=== PATIENT | female | born 1995 | race Caucasian/White ===

== ENCOUNTER 2017-07-14 18:04 | Emergency (ER) | payer OTHER ==
[2017-07-14 19:53] LABS: ABS Basophils 0 10^3/ul (0-0.2); ABS Eosinophils 0.2 10^3/ul (0-0.6); ABS Lymphocytes 1.6 10^3/ul (1.0-4.8); ABS Monocytes 0.4 10^3/ul (0-0.8); ABS Neutrophils 6.6 10^3/ul (1.5-7.7); ABS Nucleated RBC 0 10^3/ul; Eosinophil % 1.8 % (0-6); Hematocrit 46 % (35-47); Hemoglobin 15.8 g/dl (12.0-16.0); Lymphocyte % 18.1 % (25-47); Mean Corpuscular HGB Conc 35 g/dl (31-36); Mean Corpuscular Hemoglobin 30 pg (27-31); Mean Corpuscular Volume 87 fL (80-97); Mean Platelet Volume 8 um3 (7.4-10.4); Nucleated Red Blood Cells % 0; Platelet Count 218 10^3/ul (150-450); Red Blood Count 5.29 10^6/ul (4.0-5.4); Red Cell Distribution Width 13 % (10.5-15); White Blood Count 8.7 10^3/ul (3.5-10.8)
--- NOTE | 2017-07-14 20:01 | ED ---
Syncope/Near Syncope - HPI Summary HPI Summary: 22-year-old female presents with syncope today. States she was having a bowel movement and and stood up and passed out. She states before she passed out she had intense abdominal pain that has since resolved. She denies any chest pain or shortness breath. She denies any pain or swelling in muscles. She states this has happened before. She denies any change in vision. States she feels fine now. She she denies any recent illness. She denies any fevers. She denies any headache. States she did strike her head. She denies any nausea vomiting. She denies any neck pain. She denies any family history of syncope or sudden cardiac . - History Of Current Complaint Chief Complaint: EDSyncope Time Seen by Provider: 07/14/17 19:22 - Allergies/Home Medications Allergies/Adverse Reactions: Allergies Allergy/AdvReac Type Severity Reaction Status Date / Time No Known Allergies Allergy Verified 07/14/17 19:34 PMH/Surg Hx/FS Hx/Imm Hx Endocrine/Hematology History: Denies: Hx Anticoagulant Therapy Cardiovascular History: Denies: Hx Hypertension Infectious Disease History: No Infectious Disease History: Denies: Traveled Outside the [place] in Last 30 Days - Family History Known Family History: Positive: Other - no fam hx of syncope - Social History Alcohol Use: None Substance Use Type: Reports: None Smoking Status (MU): Never Smoked Tobacco Review of Systems Negative: Fever Negative: Chest Pain Negative: Shortness Of Breath Positive: Abdominal Pain - resolved Positive: Syncope All Other Systems Reviewed And Are Negative: Yes Physical Exam Triage Information Reviewed: Yes Vital Signs On Initial Exam: Initial Vitals Temp Pulse Resp BP Pulse Ox 97.4 F 77 16 140/89 99 07/14/17 18:07 07/14/17 18:07 07/14/17 18:07 07/14/17 18:07 07/14/17 18:07 Vital Signs Reviewed: Yes Appearance: Positive: Well-Appearing Skin: Positive: Warm, Dry Head/Face: Positive: Normal Head/Face Inspection Eyes: Positive: Normal, EOMI, FLAVIO, Conjunctiva Clear ENT: Positive: Normal ENT inspection, Pharynx normal, TMs normal Respiratory/Lung Sounds: Positive: Clear to Auscultation, Breath Sounds Present Cardiovascular: Positive: Normal, RRR Abdomen Description: Positive: Nontender, Soft Bowel Sounds: Positive: Present Musculoskeletal: Positive: Normal Neurological: Positive: Sensory/Motor Intact, Alert, Oriented to Person Place, Time, CN Intact II-III, Finger to Nose Psychiatric: Positive: Normal Diagnostics - Vital Signs Vital Signs Temp Pulse Resp BP Pulse Ox 07/14/17 19:35 89 15 125/79 100 07/14/17 18:07 97.4 F 77 16 140/89 99 - Laboratory Lab Results: Lab Results 07/14/17 Range/Units 19:43 WBC 8.7 (3.5-10.8) 10^3/ul RBC 5.29 (4.0-5.4) 10^6/ul Hgb 15.8 (12.0-16.0) g/dl Hct 46 (35-47) % MCV 87 (80-97) fL MCH 30 (27-31) pg MCHC 35 (31-36) g/dl RDW 13 (10.5-15) % Plt Count 218 (150-450) 10^3/ul MPV 8 (7.4-10.4) um3 Neut % (Auto) 75.7 (38-83) % Lymph % (Auto) 18.1 L (25-47) % [place] % (Auto) 4.3 (0-7) % Eos % (Auto) 1.8 (0-6) % Baso % (Auto) 0.1 (0-2) % Absolute Neuts (auto) 6.6 (1.5-7.7) 10^3/ul Absolute Lymphs (auto) 1.6 (1.0-4.8) 10^3/ul Absolute Monos (auto) 0.4 (0-0.8) 10^3/ul Absolute Eos (auto) 0.2 (0-0.6) 10^3/ul Absolute Basos (auto) 0 (0-0.2) 10^3/ul Absolute Nucleated RBC 0 10^3/ul Nucleated RBC % 0 Result Diagrams: 07/14/17 19:43 Lab Statement: Any lab studies that have been ordered have been reviewed, and results considered in the medical decision making process. - EKG No standard instances Cardiac Rate: NL EKG Rhythm: Sinus Rhythm EKG Interpretation: sinus rhythm Course/Dx Course Of Treatment: 22-year-old female presents with syncope today. States she was having a bowel movement and and stood up and passed out. She states before she passed out she had intense abdominal pain that has since resolved. She denies any chest pain or shortness breath. She denies any pain or swelling in muscles. She states this has happened before. She denies any change in vision. States she feels fine now. She she denies any recent illness. She denies any fevers. She denies any headache. States she did strike her head. She denies any nausea vomiting. She denies any neck pain. She denies any family history of syncope or sudden cardiac . On exam lungs clear to auscultation. Heart regular rate and rhythm without murmur. Abdomen soft nontender. Normal neuro exam. EKG normal. Labs within normal limits. likely vasovagal. We'll have follow-up with primary. Patient understands and agrees with plan. - Diagnoses Differential Diagnosis/HQI/PQRI: Positive: Hypoglycemia, Hypovolemia, Vasovagal Episode Provider Diagnoses: Syncope Discharge - Discharge Plan Condition: Good Disposition: HOME Patient Education Materials: Syncope (ED) Referrals: Heidy Juan MD [Primary Care Provider] - Additional Instructions: Drink plenty of fluids Eat small snacks as tolerated Follow up with primary within 5 days Return to ED if develop any new or worsening symptoms
[2017-07-14 21:03] VITALS: BP 109/92
== END 2017-07-14 21:02 | disposition home or self-care (01) ==
LOC: ED 18:04
DX: R55 Syncope and collapse (principal); R10.9 Unspecified abdominal pain
CPT/HCPCS: 36415; 80053; 83605; 83735; 84443; 84484; 85025; 93005; 99282